=== PATIENT | male | born 1975 | race Hispanic/Latino ===

== ENCOUNTER 2017-12-24 18:07 | Inpatient (IN) | payer MEDICAID, OTHER ==
[2017-12-24 18:07] VITALS: BMI 27.5
[2017-12-24 19:30] LABS: BASO % 0.6 % (0.0-2.0); EOS # 0.2 K/uL (0.0-0.7); EOS % 3.1 % (0.0-4.0); LYMPH # 2.2 K/uL (1.0-4.3); LYMPH % 32.4 % (20.0-40.0); MEAN CELL VOLUME 88.7 fL (80.0-94.0); MEAN CORPUSCULAR HEMOGLOBIN 29.5 pg (27.0-31.0); MEAN CORPUSCULAR HGB CONC 33.2 g/dL (33.0-37.0); MEAN PLATELET VOLUME 7.3 fL (7.2-11.7); MONO # 0.6 K/uL (0.0-0.8); MONO % 8.4 % (0.0-10.0); NEUT # 3.7 K/uL (1.8-7.0); NEUT % 55.5 % (50.0-75.0); RBC 4.08 Mil/uL (4.40-5.90); RED CELL DISTRIBUTION WIDTH 13.4 % (11.5-14.5); WHITE BLOOD COUNT 6.7 K/uL (4.8-10.8)
--- NOTE | 2017-12-24 19:38 | C.PDOC ---
History Of Present Illness 42 y/o male presents to ED requesting detox from heroin. Patient states last use was this morning. Denies any physical complaints. Chief Complaint (Nursing): Substance Abuse History Per: Patient History/Exam Limitations: no limitations Onset/Duration Of Symptoms: Hrs Current Symptoms Are (Timing): Still Present Suicide/Self Injury Attempted (Context): None Modifying Factor(s): Narcotics (Heroin) Associated Symptoms: denies: Anger, Suicidal Thoughts, Suicidal Plan Involuntary Hold By: None Recent travel outside of the [place]: No Past Medical History Reviewed: Historical Data, Nursing Documentation, Vital Signs Vital Signs: Last Vital Signs Temp 98.1 F 12/24/17 18:11 Pulse 83 12/24/17 18:11 Resp 16 12/24/17 18:11 BP 124/61 12/24/17 18:11 Pulse Ox 98 12/24/17 19:41 - Medical History PMH: Hepatitis - [facility] Procedures CLOSURE SKIN & SUBCUTANEOUS NEC (09/25/01) DRUG DETOXIFICATION (09/17/14) TETANUS TOXOID ADMINIST (09/25/01) Family History: States: Unknown Family Hx - Social History Hx Tobacco Use: Yes Hx Alcohol Use: No Hx Substance Use: Yes (heroin daily.) - Immunization History Hx Tetanus Toxoid Vaccination: No Hx Influenza Vaccination: No Hx Pneumococcal Vaccination: No Review Of Systems Constitutional: Negative for: Fever, Chills Cardiovascular: Negative for: Chest Pain Respiratory: Negative for: Shortness of Breath Gastrointestinal: Negative for: Nausea, Vomiting, Abdominal Pain, Diarrhea Skin: Negative for: Rash Neurological: Negative for: Weakness, Numbness Physical Exam - Physical Exam Appears: Well, Non-toxic, No Acute Distress Skin: Normal Color, Warm, Dry Head: Atraumatic, Normacephalic Eye(s): bilateral: Normal Inspection Nose: Normal, No Discharge Oral Mucosa: Moist Neck: Supple Chest: Symmetrical, No Tenderness Cardiovascular: Rhythm Regular, No Murmur Respiratory: Normal Breath Sounds, No Decreased Breath Sounds, No Rales, No Rhonchi, No Wheezing Gastrointestinal/Abdominal: Soft, No Tenderness Extremity: Normal ROM Extremity: Bilateral: Atraumatic, Normal Color And Temperature, Normal ROM Neurological/Psych: Oriented x3 (Awake and alert ), Normal Speech Gait: Steady ED Course And Treatment - Laboratory Results Result Diagrams: 12/24/17 19:26 12/24/17 19:26 O2 Sat by Pulse Oximetry: 98 (RA) Pulse Ox Interpretation: Normal Medical Decision Making Medical Decision Making: Ordered blood work and urinalysis. Disposition Discussed With : Giovanni Betts Doctor Will See Patient In The: Hospital Counseled Patient/Family Regarding: Diagnosis - Disposition Disposition: HOSPITALIZED Disposition Time: 21:43 Condition: STABLE Forms: [facility] (Portuguese) - POA Present On Arrival: None - Clinical Impression Clinical Impression: Opioid abuse - Scribe Statement The provider has reviewed the documentation as recorded by the Scribdunia Méndez All medical record entries made by the Ronaibdunia were at my direction and personally dictated by me. I have reviewed the chart and agree that the record accurately reflects my personal performance of the history, physical exam, medical decision making, and the department course for this patient. I have also personally directed, reviewed, and agree with the discharge instructions and disposition.
[2017-12-24 19:46] LABS: ALB/GLOB RATIO 1.3 (1.0-2.1); ALBUMIN 4.5 g/dL (3.5-5.0); ALT/SGPT 28 U/L (21-72); AST/SGOT 36 U/L (17-59); BLOOD UREA NITROGEN 28 mg/dL (9-20); CALCIUM 9.2 mg/dl (8.6-10.4); GFR AFRICAN-AMERICAN > 60; GFR NON-AFRICAN AMERICAN > 60
[2017-12-24 20:19] LABS: SQUAMOUS EPITHIAL < 1 /hpf (0-5); URINE BILIRUBIN 1+ (NEGATIVE); URINE BLOOD NEGATIVE (NEGATIVE); URINE CLARITY Hazy (Clear); URINE GLUCOSE (UA) NORMAL (Normal); URINE LEUKOCYTE ESTERASE NEG Leu/uL (Negative); URINE PROTEIN 1+ mg/dL (NEGATIVE)
[2017-12-24 20:20] LABS: URINE COLOR YELLOW (YELLOW)
[2017-12-24 20:39] LABS: PHENCYCLIDINE, UR NEGATIVE (NEGATIVE)
[2017-12-24 20:40] LABS: BARBITURATES, UR POSITIVE (NEGATIVE); BENZODIAZEPINES, UR POSITIVE (NEGATIVE); OPIATES, UR POSITIVE (NEGATIVE)
[2017-12-24] MEDS ORDERED: Aluminum Hydroxide/Magnesium Hydroxide Susp (30 mL) PO PRN (22:25)
[2017-12-24 22:26] VITALS: RESP 18
--- NOTE | 2017-12-24 22:47 | PCM.BM ---
<Huma Jennings - Last Filed: 12/24/17 22:45> Treatment Plan Problems - Problems identified on initial assessmt potiential for opiate withdrawal Date Initiated: 12/24/17 Time Initiated: 22:46 Assessment reference: NA Status: Active Treatment assets and liabiliti Patient Assests: cooperative, ADL independent, physically healthy, cognitively intact Patient Liabilities: substance abuse, medical problems - Milieu Protocol Maintain good personal hygiene: daily Encourage regular showers, daily Remind patient to perform daily oral care, daily Assist patient to perform ADL's Maintain personal safety: every shift Educate patient to report safety concerns to staff, every shift Monitor environment for contraband/sharps Medication safety: Monitor for expected outcome, potential side effects: every shift, Assess barriers to learning: every shift, Assess readiness for medication education: every shift <Ino Yi - Last Filed: 12/25/17 18:41> - Diagnosis (1) Opioid use disorder, severe, dependence Status: Acute Interventions: 12/25/17 18:40 * Assess 7x/week regarding severity of withdrawal * Educate regarding risks, benefits, side effects and alternatives of medications * Use Motivational Interviewing for abstinence * Use CBT for relapse prevention * Medication management for withdrawal symptoms * Encourage medication assisted treatment (2) Cocaine use disorder, severe, dependence Status: Acute Interventions: 12/25/17 18:41 * Assess 7x/week regarding severity of withdrawal * Educate regarding risks, benefits, side effects and alternatives of medications * Use Motivational Interviewing for abstinence * Use CBT for relapse prevention * Medication management for withdrawal symptoms * Encourage medication assisted treatment
--- NOTE | 2017-12-25 17:59 | PCM.PSYCH ---
Initial Psychiatric Evaluation - Initial Psychiatric Evaluation Type of Admission: Voluntary Legal Status: Capacity Chief Complaint (in patient's own words): I want to get treatment for heroin use History of Present Illness and Precipitating Events: Patient is a 42 years old, single, unemployed, male with no psychiatric history and who was admitted for the treatment of withdrawing from heroin and cocaine. Heroin: Started using heroin at 18 years of age, increased gradually, currently he was using 12-15 bags daily, IV, last used yesterday. Denied any previous detox or rehabilitation. According to patient he has multiple histories of OD, last set 2 weeks ago, required naltrexone. Patient was also positive for cocaine and barbiturates. He reported using cocaine since he was 16 years of age. He was guarded about further details about cocaine and barbiturates. He smokes one pack of cigarettes daily. Refused to get nicotine patch. Patient was arrested before and was in [facility] for about 12 years for armed robbery in 1996. Later he was again in [facility] in 2005. He was born in [place] has ninth grade of education, not working for last 2- 3 years. Never and has one 17 years old son who lives with his mother. Patient lives with his mother. His height is 6 foot 4 inches and weight is 196 pounds. Patient wants to go to short-term program for follow-up care after discharge from the hospital. Current Medications: Active Medications Generic Name Dose Route Start Last Admin Trade Name Freq PRN Reason Stop Dose Admin Al Hydrox/Mg Hydrox/Simethicone 30 ml 12/24/17 22:25 Maalox 30 Ml PO TID PRN Indigestion / Heartburn Clonidine HCl 0.1 mg 12/24/17 22:25 12/25/17 14:34 Catapres PO 0.1 mg Q8 PRN Administration COWS Score More or Equal to 5 Dicyclomine HCl 20 mg 12/25/17 11:16 Bentyl PO Q6 PRN Abdominal Cramps Hydroxyzine HCl 50 mg 12/24/17 22:31 12/24/17 23:10 Atarax PO 50 mg Q6H PRN Administration Anxiety Ibuprofen 600 mg 12/24/17 22:31 12/24/17 23:10 Motrin Tab PO 600 mg Q6H PRN Administration Pain, moderate (4-7) Loperamide HCl 2 mg 12/24/17 22:25 Imodium PO Q8 PRN Diarrhea Methadone HCl 15 mg 12/26/17 10:00 Methadone PO 12/29/17 09:59 Q24H YUSEF Taper Nitrofurantoin Macrocrystals 100 mg 12/25/17 10:00 12/25/17 10:52 Macrobid PO 100 mg Q12H YUSEF Administration Protocol Ondansetron HCl 4 mg 12/24/17 22:25 Zofran Tab PO Q8 PRN Nausea/Vomiting Trazodone HCl 100 mg 12/24/17 22:31 12/24/17 23:10 Desyrel PO 100 mg HS PRN Administration Insomnia Past Psychiatric History - Past Psychiatric History Previous Treatment History: None History of Abuse: None reported History of ETOH/Drug Use: See HPI History of Family Illness: Reported his father has history of heroine and alcohol use. Mother has history of addiction to opiate pain medication. Pertinent Medical Hx (Current Medical&Sleep Prob, Allergies): Allergies Allergy/AdvReac Type Severity Reaction Status Date / Time No Known Allergies Allergy Verified 12/24/17 18:13 No Known Home Med 12/24/17 Hepatitis C Review of Systems - Psychiatric Psychiatric: As Per HPI Mental Status Examination - Personal Presentation Personal Presentation: Looks stated age - Affect Affect: Depressed - Motor Activity Motor Activity: Calm - Reliability in Providing Information Reliability in Providing Information: Fair - Speech Speech: Organized - Mood Mood: Depressed - Formal Thought Process Formal Thought Process: No Impairment - Hallucinations/Delusions Hallucinations: Other (None reported) Delusions: Other - Obsessions/Compulsions Obsessions: None Compulsions: None - Cognitive Functions Orientation: Person, Place, Situation, Time Sensorium: Alert Attention/Concentration: Attentive Abstract Thinking: [place] Estimate of Intelligence: Average Judgement: Intact, as evidence by: Insight regarding need for hospitalization Memory: Recent intact, as evidence by: Ability to recall events of the day, Remote intact, as evidenced by: Ability to recall historical events - Risk Risk: Withdrawal, Diminished functioning - Strength & Assets Inventory Strength & Assets Inventory: Family support, Cooperative - Limitations Limitations: Other DSM 5 DX - DSM 5 DSM 5 Diagnosis: Opiate use disorder severe Cocaine use disorder severe - Recommended/Plan of Treatment Treatment Recommendations and Plan of Treatment: Patient education. Supportive therapy. CBT for relapse prevention. RI for abstinence. We'll start methadone taper for opiate withdrawal symptoms. Other when necessary medications. Projected ELOS: 4-5 days - Smoking Cessation Smoking Cessation Initiated: No Reason for not providing: Patient refused
[2017-12-25 18:31] VITALS: BP 118/74; PULSE 75; TEMP 98.2; O2SAT 98
== END 2017-12-26 06:32 | disposition left against medical advice (07) | DRG 743 ==
LOC: C.ER 18:07 → C.7D 21:43
PROVIDERS: ADMIT Psychiatry & Neurology Psychiatry; ATTEND Psychiatry & Neurology Psychiatry
PROC: HZ2ZZZZ Detoxification Services for Substance Abuse Treatment (ICD-10-PCS; principal; 2017-12-24)
PROC: HZ56ZZZ Individual Psychotherapy for Substance Abuse Treatment, Psychoeducation (ICD-10-PCS; 2017-12-24)
PROC: HZ59ZZZ Individual Psychotherapy for Substance Abuse Treatment, Supportive (ICD-10-PCS; 2017-12-24)
DX: F11.20 Opioid dependence, uncomplicated (principal); F14.20 Cocaine dependence, uncomplicated; F17.210 Nicotine dependence, cigarettes, uncomplicated

== ENCOUNTER 2018-08-03 12:44 | Inpatient (IN) | payer MEDICAID ==
[2018-08-03 12:44] VITALS: BMI 27.5
[2018-08-03 14:34] LABS: BASO % 0.6 % (0.0-2.0); EOS # 0.2 K/uL (0.0-0.7); EOS % 3.2 % (0.0-4.0); HEMOGLOBIN 12.7 g/dL (12.0-18.0); MEAN CORPUSCULAR HEMOGLOBIN 30.8 pg (27.0-31.0); MEAN CORPUSCULAR HGB CONC 33.7 g/dL (33.0-37.0); MEAN PLATELET VOLUME 7.5 fL (7.2-11.7); MONO # 0.5 K/uL (0.0-0.8); MONO % 9.7 % (0.0-10.0); NEUT # 3.4 K/uL (1.8-7.0); NEUT % 66.5 % (50.0-75.0); NRBC % 0.3 % (0.0-2.0); RBC 4.12 Mil/uL (4.40-5.90); RED CELL DISTRIBUTION WIDTH 13.4 % (11.5-14.5); WHITE BLOOD COUNT 5.1 K/uL (4.8-10.8)
[2018-08-03 14:35] LABS: MEAN CELL VOLUME 91.2 fL (80.0-94.0)
[2018-08-03 14:39] LABS: SQUAMOUS EPITHIAL < 1 /hpf (0-5); URINE BILIRUBIN NEGATIVE (NEGATIVE); URINE BLOOD NEGATIVE (NEGATIVE); URINE CLARITY Clear (Clear); URINE COLOR Yellow (YELLOW); URINE GLUCOSE (UA) NORMAL (Normal); URINE LEUKOCYTE ESTERASE NEG Leu/uL (Negative); URINE PROTEIN NEGATIVE (NEGATIVE); URINE UROBILINOGEN NORMAL mg/dL (0.2-1.0)
[2018-08-03 14:49] LABS: ALB/GLOB RATIO 1.4 (1.0-2.1); ALBUMIN 4.2 g/dL (3.5-5.0); ALT/SGPT 38 U/L (21-72); AST/SGOT 36 U/L (17-59); BLOOD UREA NITROGEN 19 mg/dL (9-20); GFR NON-AFRICAN AMERICAN > 60
[2018-08-03 14:57] LABS: BARBITURATES, UR NEGATIVE (NEGATIVE); PHENCYCLIDINE, UR NEGATIVE (NEGATIVE)
[2018-08-03 15:04] LABS: BENZODIAZEPINES, UR POSITIVE (NEGATIVE); OPIATES, UR POSITIVE (NEGATIVE)
--- NOTE | 2018-08-03 15:56 | C.PDOC ---
History Of Present Illness 43 year old male presents to the emergency department requesting detox for heroin. Patient states that he uses heroin intravenously, more than 10 bags per day. Patient also reports occasional Xanax use. Patient reports feeling depres sed due to the recent of his mother. He denies suicidal/homicidal ideation, hallucinations, and has no physical complaints at this time. Time Seen by Provider: 08/03/18 13:07 Chief Complaint (Nursing): Substance Abuse History Per: Patient History/Exam Limitations: no limitations Onset/Duration Of Symptoms: Days Current Symptoms Are (Timing): Still Present Suicide/Self Injury Attempted (Context): None Modifying Factor(s): Other (heroin) Associated Symptoms: Depression. denies: Suicidal Thoughts, Suicidal Plan, Other (homicidal ideation, hallucinations. ) Past Medical History Reviewed: Historical Data, Nursing Documentation, Vital Signs Vital Signs: Last Vital Signs Temp 98.2 F 08/03/18 15:07 Pulse 74 08/03/18 15:07 Resp 18 08/03/18 15:07 BP 98/61 L 08/03/18 15:07 Pulse Ox 100 08/03/18 15:07 - Medical History PMH: Hepatitis Denies: Diabetes, HTN, Chronic Kidney Disease, Seizures, Sexually Transmitted Disease Surgical History: No Surg Hx - [facility] Procedures CLOSURE SKIN & SUBCUTANEOUS NEC (09/25/01) DETOXIFICATION SERVICES FOR SUBSTANCE ABUSE TREATMENT (12/24/17) DRUG DETOXIFICATION (09/17/14) INDIV PSYCHOTHERAPY FOR SUBSTANCE ABUSE TREATMENT, SUPPORT (12/24/17) INDIV PSYCHOTHERAPY FOR SUBSTANCE ABUSE, PSYCHOEDUCATION (12/24/17) TETANUS TOXOID ADMINIST (09/25/01) Family History: States: Unknown Family Hx - Social History Hx Tobacco Use: Yes Hx Alcohol Use: No Hx Substance Use: Yes (heroin daily.) - Immunization History Hx Tetanus Toxoid Vaccination: No Hx Influenza Vaccination: No Hx Pneumococcal Vaccination: No Review Of Systems Except As Marked, All Systems Reviewed And Found Negative. Constitutional: Negative for: Fever, Chills Gastrointestinal: Negative for: Nausea, Vomiting, Diarrhea Psych: Positive for: Depression. Negative for: Suicidal ideation, Other (hallucinations) Physical Exam - Physical Exam Appears: Non-toxic, No Acute Distress Skin: Normal Color, Warm, Dry Head: Atraumatic, Normacephalic Eye(s): bilateral: Normal Inspection, PERRL, EOMI Oral Mucosa: Moist Neck: Normal, Supple Chest: Symmetrical, No Tenderness Cardiovascular: Rhythm Regular, No Murmur Respiratory: Normal Breath Sounds, No Rales, No Rhonchi, No Wheezing Gastrointestinal/Abdominal: Soft, No Tenderness Extremity: Other (track limon on arms bilaterally, no sign of infection) Neurological/Psych: Oriented x3, Normal Speech, Normal Cognition ED Course And Treatment - Laboratory Results Result Diagrams: 08/03/18 14:29 08/03/18 14:29 Lab Results: Total Bilirubin 0.4 mg/dL (0.2-1.3) 08/03/18 14:29 AST 36 U/L (17-59) 08/03/18 14:29 ALT 38 U/L (21-72) 08/03/18 14:29 Alkaline Phosphatase 60 U/L (38-126) 08/03/18 14:29 Total Protein 7.1 g/dL (6.3-8.3) 08/03/18 14:29 Albumin 4.2 g/dL (3.5-5.0) 08/03/18 14:29 Globulin 3.0 gm/dL (2.2-3.9) 08/03/18 14:29 Albumin/Globulin Ratio 1.4 (1.0-2.1) 08/03/18 14:29 Urine Color Yellow (YELLOW) 08/03/18 14:29 Urine Clarity Clear (Clear) 08/03/18 14:29 Urine pH 5.0 (5.0-8.0) 08/03/18 14:29 Ur Specific [place] 1.025 (1.003-1.030) 08/03/18 14:29 Urine Protein Negative mg/dL (NEGATIVE) 08/03/18 14:29 Urine Glucose (UA) Normal mg/dL (Normal) 08/03/18 14:29 Urine Ketones Negative mg/dL (NEGATIVE) 08/03/18 14:29 Urine Blood Negative (NEGATIVE) 08/03/18 14:29 Urine Nitrate Negative (NEGATIVE) 08/03/18 14:29 Urine Bilirubin Negative (NEGATIVE) 08/03/18 14:29 Urine Urobilinogen Normal mg/dL (0.2-1.0) 08/03/18 14:29 Ur Leukocyte Esterase Neg Marti/uL (Negative) 08/03/18 14:29 Urine WBC (Auto) < 1 /hpf (0-5) 08/03/18 14:29 Ur Squamous Epith Cells < 1 /hpf (0-5) 08/03/18 14:29 O2 Sat by Pulse Oximetry: 100 (RA) Pulse Ox Interpretation: Normal Medical Decision Making Medical Decision Making: Plan: Chemistry Bloodwork Urinalysis Disposition - Disposition Disposition: HOSPITALIZED Disposition Time: 15:00 Condition: STABLE - Clinical Impression Clinical Impression: Drug dependence - Scribe Statement The provider has reviewed the documentation as recorded by the Scribe (Joesph Siddiqi) Provider Attestation: All medical record entries made by the Scribe were at my direction and personally dictated by me. I have reviewed the chart and agree that the record accurately reflects my personal performance of the history, physical exam, medical decision making, and the department course for this patient. I have also personally directed, reviewed, and agree with the discharge instructions and disposition.
[2018-08-03] MEDS ORDERED: Aluminum Hydroxide/Magnesium Hydroxide Susp (30 mL) PO PRN (17:02)
--- NOTE | 2018-08-03 17:07 | PCM.BM ---
<Vanda Kirk - Last Filed: 08/03/18 17:06> Treatment Plan Problems - Problems identified on initial assessmt Denial Date Initiated: 08/03/18 Time Initiated: 17:06 Assessment reference: NA Status: Active Defensive Coping Date Initiated: 08/03/18 Time Initiated: 17:06 Assessment reference: NA Status: Active Knowledge Deficit : alcohol use Date Initiated: 08/03/18 Time Initiated: 17:07 Assessment reference: NA Treatment assets and liabiliti Patient Assests: cooperative, ADL independent, physically healthy, negotiates basic needs, cognitively intact Patient Liabilities: substance abuse - Milieu Protocol Maintain good personal hygiene: daily Encourage regular showers, daily Remind patient to perform daily oral care, daily Assist patient to perform ADL's Conduct patient checks and document Observation sheet: Q15 minutes Maintain personal safety: every shift Educate patient to report safety concerns to staff, every shift Monitor environment for contraband/sharps Medication safety: Monitor for expected outcome, potential side effects: every shift, Assess barriers to learning: every shift, Assess readiness for medication education: every shift <Giovanni Betts - Last Filed: 08/06/18 12:38> - Diagnosis (1) Opioid use disorder, severe, dependence Status: Acute Interventions: 08/04/18 12:38 * Assess 7x/week regarding severity of withdrawal * Educate regarding risks, benefits, side effects and alternatives of medications * Use Motivational Interviewing for abstinence * Use CBT for relapse prevention * Medication management for withdrawal symptoms * Encourage medication assisted treatment * <Faith Sales - Last Filed: 08/06/18 12:56> Family Contact Family involvement: Family/SO is involved Family contact name: ex- Family contacted how many times per week?: 2 - Goals for Treatment Patient goals for treatment: Complete detox and [facility] for long-term inpatient treatment program. Discharge/Continuing Care - Education Needs Education Needs: Patient Medication, Patient Diagnosis/Disease Process, Patient Coping Skills, Patient Anger Management skills, Patient Placement options, Patient Community resources, Significant Other Diagnosis/Disease Process, Significant Other Community resources - Discharge Discharge Criteria: No longer exhibiting s/s of withdrawal, Reduction of target symptoms Discharge to:: Substance Abuse Rehab - Treatment Team Participation Patient/Family/SO Statement: 08/06/18 12:56 "I need to go somewhere long-term from here..." Discussed with Family/SO: No Was Patient/Family/SO present at Treatment Team Meeting: Yes
--- NOTE | 2018-08-04 10:53 | PCM.PSYCH ---
Initial Psychiatric Evaluation - Initial Psychiatric Evaluation Type of Admission: Voluntary Legal Status: Capacity Chief Complaint (in patient's own words): "I am still withdrawing" History of Present Illness and Precipitating Events: Patient is a 43 years old, single, unemployed, male who was admitted for the treatment of withdrawing from heroin. Patient claims that he was recently in [facility] but left after 2 da ys and then went to [facility] and left there are 2 days because he was still withdrawing. He used after [facility] and came here detox. Heroin: Started using heroin at 18 years of age, increased gradually, currently he was using 10 bags daily, IV, last used yesterday. According to patient he has multiple histories of OD. Patient reported using cocaine since he was 16 years of age. He also uses Xanax 3 or 4 tablets a day either 1 or 2 mg tablets. He smokes marijuana daily and one pack of cigarettes daily. Refused to get nicotine patch. He denied other drug or alcohol use. Patient was arrested before and was in [facility] for about 12 years for armed robbery in 1996. Later, he was again in [facility] in 2005. He was born in [place] has ninth grade of education, not working for last 2-3 years. Never and has one 17 year-old son who lives with his mother. Patient lives with his mother. Patient reports history of depression and anxiety and anger management problems. Of note, he signed out AMA last time he was here in 2018. Current Medications: Active Medications Generic Name Dose Route Start Last Admin Trade Name Freq PRN Reason Stop Dose Admin Al Hydrox/Mg Hydrox/Simethicone 30 ml 08/03/18 17:02 Maalox 30 Ml PO TID PRN Indigestion / Heartburn Clonidine HCl 0.1 mg 08/03/18 17:02 Catapres PO Q4 PRN COWS Score More or Equal to 5 Gabapentin 300 mg 08/03/18 18:00 08/04/18 10:00 Neurontin PO 300 mg TID YUSEF Administration Hydroxyzine HCl 50 mg 08/03/18 17:00 08/03/18 22:26 Atarax PO 50 mg Q6H PRN Administration Anxiety Ibuprofen 600 mg 08/03/18 16:52 Motrin Tab PO Q6H PRN Pain, moderate (4-7) Loperamide HCl 2 mg 08/03/18 17:02 Imodium PO Q8 PRN Diarrhea Mirtazapine 15 mg 08/03/18 22:00 08/03/18 22:26 Remeron PO 15 mg HS YUSEF Administration Ondansetron HCl 4 mg 08/03/18 17:02 Zofran Tab PO Q8 PRN Nausea/Vomiting Trazodone HCl 100 mg 08/03/18 22:00 08/03/18 22:27 Desyrel PO 100 mg HS PRN Administration Insomnia Past Psychiatric History - Past Psychiatric History Pertinent Medical Hx (Current Medical&Sleep Prob, Allergies): Allergies Allergy/AdvReac Type Severity Reaction Status Date / Time No Known Allergies Allergy Verified 08/03/18 13:07 No Known Home Med 12/24/17 Review of Systems - Neurological Neurological: UNREMARKABLE - Psychiatric Psychiatric: Abnormal Sleep Pattern, Anhedonia, Anxiety, Behavioral Changes, Depression (Mild), Difficulty Concentrating, Irritability. absent: Hallucinations, Homicidal Ideation, Suicidal Ideation Mental Status Examination - Personal Presentation Personal Presentation: Looks older than stated age - Affect Affect: Constricted - Motor Activity Motor Activity: Other (Slightly restless) - Reliability in Providing Information Reliability in Providing Information: Fair - Speech Speech: Organized - Mood Mood: Depressed, Anxious - Formal Thought Process Formal Thought Process: No Impairment - Cognitive Functions Orientation: Person, Place, Situation, Time Sensorium: Alert Attention/Concentration: Easily distracted Estimate of Intelligence: Average Judgement: Intact, as evidence by: Insight regarding need for hospitalization Memory: Recent intact, as evidence by: Ability to recall events of the day, Remote intact, as evidenced by: Abilit to recall sig. life events - Risk Risk: Withdrawal, Diminished functioning - Strength & Assets Inventory Strength & Assets Inventory: Cooperative - Limitations Limitations: Living alone DSM 5 DX - DSM 5 DSM 5 Diagnosis: Opioid withdrawal Opioid use disorder, severe Sedative, hypnotic or anxiolytic use disorder, severe Cocaine use disorder, severe Personality disorder, unspecified Depressive disorder, unspecified Cannabis use disorder severe - Recommended/Plan of Treatment Treatment Recommendations and Plan of Treatment: Taper with methadone Patient has not been using Xanax as much lately and plus he was in another detox so we will not start benzo detox unless he develops withdrawal symptoms Gabapentin for augmentation if needed As needed medications All risks, benefits and alternatives of the meds discussed, and the pt agreed and understood. Attend groups and activities Supportive therapy and psychoeducation ND for abstinence CBT for relapse prevention Encourage MAT Refer to rehab or IOP, and self-help groups Teach healthy lifestyle methods, i.e. diet, exercise, meditation Smoking cessation with ND Nicotine patch if needed 34 min Projected ELOS: 4 days Prognosis: Good with treatment - Smoking Cessation Smoking Cessation Initiated: Yes
--- NOTE | 2018-08-06 12:40 | PCM.PYCHPN ---
Psychiatric Progress Note - Psychiatric Progress Note Patient seen today, length of contact: 18 min Patient Chief Complaint: "I am not well" Problems Identified/Issues Discussed: The pt is seen, chart reviewed, case discussed with staff. Support and psychoeducation given, CBT and LA used briefly No new symptoms reported, improving slowly and needs more time No SEs from medications, risks discussed. After care discussed Medication Change: Yes (detox changes daily) Medical Record Reviewed: Yes Mental Status Examination - Cognitive Function Orientation: Person, Place, Situation, Time Memory: Intact Attention: WNL Concentration: Poor Association: WNL Fund of Knowledge: WNL - Mood Mood: Depressed, Anxious - Affect Affect: Constricted - Speech Speech: Appropriate - Formal Thought Process Formal Thought Process: No Impairment - Suicidal Ideation Suicidal Ideation: No - Homicidal Ideation Homicidal Ideation: No Goal/Treatment Plan - Goal/Treatment Plan Need for Continued Stay: Discharge may exacerbated symptoms, Severe functional impairment Progress Toward Problem(s) and Goals/Treatment Plan: Taper with methadone Patient has not been using Xanax as much lately and plus he was in another detox so we will not start benzo detox unless he develops withdrawal symptoms Gabapentin for augmentation if needed As needed medications All risks, benefits and alternatives of the meds discussed, and the pt agreed and understood. Attend groups and activities Supportive therapy and psychoeducation LA for abstinence CBT for relapse prevention Encourage MAT Refer to rehab or IOP, and self-help groups Teach healthy lifestyle methods, i.e. diet, exercise, meditation Smoking cessation with LA Nicotine patch if needed
--- NOTE | 2018-08-06 12:43 | PCM.PYCHPN ---
Psychiatric Progress Note - Psychiatric Progress Note Patient seen today, length of contact: 18 min Patient Chief Complaint: "I couldn't sleep" Problems Identified/Issues Discussed: The pt is seen, chart reviewed, case discussed with staff. The pt is compliant with medications and reports no side-effects. Symptoms are improving but needs more time to stabilize. Sleep is an issue. He also threw up again. Pt attends groups and activities. Support given, psycho-education provided. After care discussed. Medication Change: Yes (detox changes daily) Medical Record Reviewed: Yes Mental Status Examination - Cognitive Function Orientation: Person, Place, Situation, Time Memory: Intact Attention: WNL Concentration: Poor Association: WNL Fund of Knowledge: WNL - Mood Mood: Depressed, Anxious - Affect Affect: Constricted - Speech Speech: Appropriate - Formal Thought Process Formal Thought Process: No Impairment - Suicidal Ideation Suicidal Ideation: No - Homicidal Ideation Homicidal Ideation: No Goal/Treatment Plan - Goal/Treatment Plan Need for Continued Stay: Discharge may exacerbated symptoms, Severe functional impairment Progress Toward Problem(s) and Goals/Treatment Plan: Taper with methadone Patient has not been using Xanax as much lately and plus he was in another detox so we will not start benzo detox unless he develops withdrawal symptoms Gabapentin for augmentation if needed As needed medications All risks, benefits and alternatives of the meds discussed, and the pt agreed and understood. Attend groups and activities Supportive therapy and psychoeducation [place] for abstinence CBT for relapse prevention Encourage MAT Refer to rehab or IOP, and self-help groups Teach healthy lifestyle methods, i.e. diet, exercise, meditation Smoking cessation with [place] Nicotine patch if needed Estimated Date of D/C: 08/07/18 - Smoking Cessation Smoking Cessation Initiated: Yes
[2018-08-07 07:00] VITALS: RESP 18
--- NOTE | 2018-08-07 08:51 | PCM.PYCHDC ---
Mental Status Examination - Mental Status Examination Orientation: Person Discharge Summary - Discharge Note Consultations:: List each consultation separately and include: 1. Reason for request. 2. Findings. 3. Follow-up Summary of Hospital Course include:: 1. Description of specific treatment plan utilized for patients during their course of treatmen. 2. Summarize the time- course for resolution of acute symptoms and/or regressed behaviors. 3. Describe issues identified and worked on during hospitalization. 4. Describe medication utilized. 5. Describe medical problems identified and treated. 6. Reassessment of suicide risk Summary of Hospital Course: Patient is a 43 years old, single, unemployed, male who was admitted for the treatment of withdrawing from heroin. Patient claims that he was recently in [facility] but left after 2 days and then went to [facility] and left there are 2 days because he was still withdrawing. He used after [facility] and came here detox. Heroin: Started using heroin at 18 years of age, increased gradually, currently he was using 10 bags daily, IV, last used yesterday. According to patient he has multiple histories of OD. Patient reported using cocaine since he was 16 years of age. He also uses Xanax 3 or 4 tablets a day either 1 or 2 mg tablets. He smokes marijuana daily and one pack of cigarettes daily. Refused to get nicotine patch. He denied other drug or alcohol use. Patient was arrested before and [facility] about 12 years for armed robbery in 1996. Later, he was [facility] in [facility] 2005. He was born in [place] has ninth grade of education, not working for last 2-3 years. Never and has one 17 year-old son who lives with his mother. Patient lives with his mother. Patient reports history of depression and anxiety and anger management problems. Of note, he signed out AMA last time he was here in 2018. He went to [facility] in [place] - Diagnosis (1) Opioid use disorder, severe, dependence Current Visit: No Status: Acute - Final Diagnosis (DSM 5) Condition upon Discharge: STABLE Disposition: HOME/ ROUTINE Follow-up Treatment Plan: Taper with methadone Patient has not been using Xanax as much lately and plus he was in another detox so we will not start benzo detox unless he develops withdrawal symptoms Gabapentin for augmentation if needed As needed medications All risks, benefits and alternatives of the meds discussed, and the pt agreed and understood. Attend groups and activities Supportive therapy and psychoeducation [place] for abstinence CBT for relapse prevention Encourage MAT Refer to rehab or IOP, and self-help groups Teach healthy lifestyle methods, i.e. diet, exercise, meditation Smoking cessation with [place] Nicotine patch if needed Prescriptions/Medication Reconciliation: Gabapentin [Neurontin] 300 mg PO TID #90 cap Mirtazapine [Remeron] 30 mg PO HS #30 tab traZODone [Desyrel] 100 mg PO HS PRN #30 tab PRN Reason: Insomnia
[2018-08-07 10:09] VITALS: BP 108/65; PULSE 83; TEMP 97.6; O2SAT 99
== END 2018-08-07 10:45 | disposition home or self-care (01) | DRG 745 ==
LOC: C.ER 12:44 → C.7D 15:54
PROVIDERS: ADMIT Psychiatry & Neurology Psychiatry; ATTEND Psychiatry & Neurology Psychiatry
PROC: HZ2ZZZZ Detoxification Services for Substance Abuse Treatment (ICD-10-PCS; principal; 2018-08-03)
PROC: HZ81ZZZ Medication Management for Substance Abuse Treatment, Methadone Maintenance (ICD-10-PCS; 2018-08-03)
PROC: HZ80ZZZ Medication Management for Substance Abuse Treatment, Nicotine Replacement (ICD-10-PCS; 2018-08-03)
PROC: HZ46ZZZ Group Counseling for Substance Abuse Treatment, Psychoeducation (ICD-10-PCS; 2018-08-03)
PROC: HZ59ZZZ Individual Psychotherapy for Substance Abuse Treatment, Supportive (ICD-10-PCS; 2018-08-03)
DX: F11.23 Opioid dependence with withdrawal (principal); F14.20 Cocaine dependence, uncomplicated; F12.20 Cannabis dependence, uncomplicated; F13.10 Sedative, hypnotic or anxiolytic abuse, uncomplicated; F32.9 Major depressive disorder, single episode, unspecified; F60.9 Personality disorder, unspecified; F17.210 Nicotine dependence, cigarettes, uncomplicated

== ENCOUNTER 2018-09-24 14:14 | Inpatient (IN) | payer MEDICAID ==
[2018-09-24 14:39] VITALS: BMI 25.9
--- NOTE | 2018-09-24 15:01 | C.PDOC ---
History Of Present Illness 43 y/o male presents to the ED requesting detox from alcohol and heroin. Patient admits he last used heroin around 11:30pm last night. Denies having any active complaints. Denies any SI or HI. Time Seen by Provider: 09/24/18 14:34 Chief Complaint (Nursing): Substance Abuse History Per: Patient History/Exam Limitations: no limitations Onset/Duration Of Symptoms: Hrs Current Symptoms Are (Timing): Still Present Modifying Factor(s): Alcohol, Other (Heroin) Associated Symptoms: denies: Suicidal Thoughts Past Medical History Reviewed: Historical Data, Nursing Documentation, Vital Signs Vital Signs: Last Vital Signs Temp 98.6 F 09/24/18 14:40 Pulse 81 09/24/18 14:40 Resp 18 09/24/18 14:40 BP 121/69 09/24/18 14:40 Pulse Ox 95 09/24/18 14:40 - Medical History PMH: Hepatitis Denies: Diabetes, HTN, Chronic Kidney Disease, Seizures, Sexually Transmitted Disease - [facility] Procedures CLOSURE SKIN & SUBCUTANEOUS NEC (09/25/01) DETOXIFICATION SERVICES FOR SUBSTANCE ABUSE TREATMENT (08/03/18) DRUG DETOXIFICATION (09/17/14) GROUP SENIOR COST ESTIMATOR FOR SUBSTANCE ABUSE TREATMENT, PSYCHOEDUCATION (08/03/18) INDIV PSYCHOTHERAPY FOR SUBSTANCE ABUSE TREATMENT, SUPPORT (08/03/18) INDIV PSYCHOTHERAPY FOR SUBSTANCE ABUSE, PSYCHOEDUCATION (12/24/17) MEDS MGMT FOR SUBSTANCE ABUSE TREATMENT, METHADONE MAINT (08/03/18) MEDS MGMT FOR SUBSTANCE ABUSE TREATMENT, NICOTINE REPLACE (08/03/18) TETANUS TOXOID ADMINIST (09/25/01) Family History: States: Unknown Family Hx - Social History Hx Tobacco Use: Yes Hx Alcohol Use: Yes Hx Substance Use: Yes - Immunization History Hx Tetanus Toxoid Vaccination: No Hx Influenza Vaccination: No Hx Pneumococcal Vaccination: No Review Of Systems Except As Marked, All Systems Reviewed And Found Negative. Constitutional: Negative for: Fever, Chills Cardiovascular: Negative for: Chest Pain Respiratory: Negative for: Shortness of Breath Gastrointestinal: Negative for: Vomiting, Abdominal Pain Neurological: Negative for: Weakness, Dizziness Psych: Positive for: Other (Alcohol Abuse). Negative for: Suicidal ideation Physical Exam - Physical Exam Appears: Non-toxic, No Acute Distress Skin: Normal Color, Warm, No Rash Head: Normacephalic Eye(s): bilateral: PERRL Oral Mucosa: Moist Neck: Trachea Midline, Supple Chest: Symmetrical Cardiovascular: Rhythm Regular, No Murmur Respiratory: Normal Breath Sounds, No Accessory Muscle Use, No Rhonchi, No Wheezing Gastrointestinal/Abdominal: Soft, No Tenderness, No Distention Extremity: Normal ROM, No Pedal Edema, No Deformity Pulses: Left Dorsalis Pedis: Normal, Right Dorsalis Pedis: Normal Neurological/Psych: Oriented x3, Normal Speech ED Course And Treatment - Laboratory Results Result Diagrams: 09/24/18 15:39 09/24/18 15:39 Lab Interpretation: No Acute Changes O2 Sat by Pulse Oximetry: 95 Pulse Ox Interpretation: Normal Progress Note: Labs ordered for medical clearance. Pending PES evaluation. AT 16:10, pt is medically cleared for PES evaluation. Pt remained stable during the ED evaluation. 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 - Scribe Statement The provider has reviewed the documentation as recorded by the Scribdunia Gurrola All medical record entries made by the Scribe were at my direction and personally dictated by me. I have reviewed the chart and agree that the record accurately reflects my personal performance of the history, physical exam, medical decision making, and the department course for this patient. I have also personally directed, reviewed, and agree with the discharge instructions and dis position.
[2018-09-24 15:45] LABS: BASO % 0.7 % (0.0-2.0); EOS # 0.1 K/uL (0.0-0.7); EOS % 3.1 % (0.0-4.0); HEMOGLOBIN 12.3 g/dL (12.0-18.0); LYMPH # 1.5 K/uL (1.0-4.3); LYMPH % 32.1 % (20.0-40.0); MEAN CORPUSCULAR HEMOGLOBIN 31.9 pg (27.0-31.0); MEAN CORPUSCULAR HGB CONC 34.7 g/dL (33.0-37.0); MONO # 0.4 K/uL (0.0-0.8); MONO % 8.4 % (0.0-10.0); NEUT # 2.6 K/uL (1.8-7.0); NEUT % 55.7 % (50.0-75.0); NRBC % 0.1 % (0.0-2.0); RBC 3.85 Mil/uL (4.40-5.90); RED CELL DISTRIBUTION WIDTH 13.8 % (11.5-14.5); WHITE BLOOD COUNT 4.6 K/uL (4.8-10.8)
[2018-09-24 15:54] LABS: URINE BILIRUBIN NEGATIVE (NEGATIVE); URINE BLOOD NEGATIVE (NEGATIVE); URINE CLARITY Hazy (Clear); URINE COLOR Yellow (YELLOW); URINE GLUCOSE (UA) NORMAL (Normal); URINE LEUKOCYTE ESTERASE NEG Leu/uL (Negative); URINE PROTEIN NEGATIVE (NEGATIVE)
[2018-09-24 16:00] LABS: ALB/GLOB RATIO 1.7 (1.0-2.1); ALBUMIN 4.3 g/dL (3.5-5.0); ALT/SGPT 24 U/L (21-72); AST/SGOT 46 U/L (17-59); BLOOD UREA NITROGEN 18 mg/dL (9-20); CALCIUM 8.7 mg/dl (8.6-10.4); GFR NON-AFRICAN AMERICAN > 60
[2018-09-24 16:28] LABS: BARBITURATES, UR NEGATIVE (NEGATIVE); BENZODIAZEPINES, UR NEGATIVE (NEGATIVE); PHENCYCLIDINE, UR NEGATIVE (NEGATIVE)
[2018-09-24 16:32] LABS: OPIATES, UR POSITIVE (NEGATIVE)
--- NOTE | 2018-09-24 18:27 | PCM.BM ---
<Vanda Kirk - Last Filed: 09/24/18 18:26> Treatment Plan Problems - Problems identified on initial assessmt Defensive Coping Date Initiated: 09/24/18 Time Initiated: 18:26 Assessment reference: NA Status: Active Chronic Low Self Esteem Date Initiated: 09/24/18 Time Initiated: 18:27 Assessment reference: NA Status: Active Low motivation to change Date Initiated: 09/24/18 Time Initiated: 18:27 Assessment reference: NA Status: Active Treatment assets and liabiliti Patient Assests: cooperative, ADL independent, physically healthy, negotiates basic needs, cognitively intact Patient Liabilities: substance abuse - Milieu Protocol Maintain good personal hygiene: daily Encourage regular showers, daily Remind patient to perform daily oral care, daily Assist patient to perform ADL's Conduct patient checks and document Observation sheet: Q15 minutes Maintain personal safety: every shift Educate patient to report safety concerns to staff, every shift Monitor environment for contraband/sharps Medication safety: Monitor for expected outcome, potential side effects: every shift, Assess barriers to learning: every shift, Assess readiness for medication education: every shift <[employer] - Last Filed: 09/25/18 11:20> Family Contact Family involvement: Famliy/SO not involved - Goals for Treatment Patient goals for treatment: COMPLETE DETOX AND APPLY FOR LONG-TERM REHAB. Discharge/Continuing Care - Education Needs Education Needs: Patient Medication, Patient Diagnosis/Disease Process, Patient Coping Skills, Patient Anger Management skills, Patient Placement options, Patient Community resources - Discharge Discharge Criteria: No longer exhibiting s/s of withdrawal, Reduction of target symptoms Discharge to:: Substance Abuse Rehab - Treatment Team Participation Patient/Family/SO Statement: 09/25/18 11:19 "I SHOULDA LISTENED THE LAST TIME I WAS HERE...I NEED TO GO STRAIGHT TO THE [facility] FROM HERE." Discussed with Family/SO: No Was Patient/Family/SO present at Treatment Team Meeting: Yes
[2018-09-24] MEDS ORDERED: Aluminum Hydroxide/Magnesium Hydroxide Susp (30 mL) PO PRN (19:48)
[2018-09-25] MEDS: Multiple Vitamins Tab PO SCH (09:27)
--- NOTE | 2018-09-25 10:03 | PCM.PSYCH ---
Initial Psychiatric Evaluation - Initial Psychiatric Evaluation Type of Admission: Voluntary Legal Status: Capacity Chief Complaint (in patient's own words): "Not good" History of Present Illness and Precipitating Events: 43 y/o homeless single male. Pt has a 17 y/o son who lives with his mother. 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 He is here to detox from heroin. He is known from previous admissions. He sniffs up to 10 bags of heroin per day. Pt first started using heroin 20 years ago. He also drinks 1-2 "Airplane shots of vodka" per day as well as 3 x 24 oz cans of beer per day. States that he shakes, sweats, and gets dry mouth when he doesn't drink. Denies history of seizures or delirium tremens in the past. He has been admitted to detox 6 times at [facility] and 8 times at [facility]. He has never been to rehab. He was most recently discharged from [facility] a month ago. Pt planned to go to [place], but states that he did not go because he was trying to help his girlfriend. He relapsed 6 days after leaving detox. His longest time sober was 6 months ( while in [facility]). Pt report recent stressors, stating that he lost his mother in June. He was living in her home, when it was sold, leaving the patient homeless. States that his girlfriend also recently [facility] to [facility] for drug related issues. He has been "feeling more down" than usual. Says that he doesn't have any support. Reports chills, diarrhea and decreases appetite COWS > 12. He plans to go to [place] after this. Denies using any other drugs currently. On previous admissions pts admits to using 3-4 tablets of Xanax daily, smokes 1 pack per day, cocaine since the age of 12 , and uses marijuana. He is negative for these as he stopped recently. Psych Hx: Depression and anger management. Still very depressed and has vague (mostly passive) SI, no plans. However he is not feeling safe outside due to homelessness and rampant drug environment. Fam Psych Hx: Denies Medical Hx: Hep C - not treated and he has been ignoring care Trauma: Denies Current Medications: Active Medications Generic Name Dose Route Start Last Admin Trade Name Freq PRN Reason Stop Dose Admin Al Hydrox/Mg Hydrox/Simethicone 30 ml 09/24/18 19:48 Maalox 30 Ml PO TID PRN Indigestion / Heartburn Chlordiazepoxide 25 mg 09/24/18 19:49 Librium PO Q4H PRN Alcohol Withdrawal Clonidine HCl 0.1 mg 09/24/18 19:47 Catapres PO Q4 PRN COWS Score More or Equal to 5 Dicyclomine HCl 10 mg 09/24/18 19:48 Bentyl PO Q6 PRN Muscle spasm Folic Acid 1 mg 09/25/18 10:00 09/25/18 09:27 Folic Acid PO 1 mg DAILY YUSEF Administration Gabapentin 300 mg 09/24/18 20:00 09/25/18 09:27 Neurontin PO 300 mg BID YUSEF Administration Hydroxyzine HCl 25 mg 09/24/18 19:14 09/24/18 19:35 Atarax PO 25 mg Q6 PRN Administration Anxiety Ibuprofen 600 mg 09/24/18 19:48 Motrin Tab PO Q6 PRN Pain, moderate (4-7) Loperamide HCl 2 mg 09/24/18 19:48 Imodium PO Q8 PRN Diarrhea Methadone HCl 15 mg 09/25/18 10:00 09/25/18 09:27 Methadone PO 09/28/18 09:59 15 mg Q24H YUSEF Administration Taper Multivitamins 1 tab 09/25/18 10:00 09/25/18 09:27 Hexavitamin PO 1 tab DAILY YUSEF Administration Ondansetron HCl 4 mg 09/24/18 19:48 Zofran Tab PO Q8 PRN Nausea/Vomiting Pneumococcal Polyvalent Vaccine 0.5 ml 09/26/18 10:00 Pneumovax 23 Vaccine IM 09/26/18 10:01 .ONCE ONE Thiamine HCl 100 mg 09/25/18 10:00 09/25/18 09:27 Vitamin B1 Tab PO 100 mg DAILY YUSEF Administration Trazodone HCl 50 mg 09/24/18 19:49 09/24/18 21:21 Desyrel PO 50 mg HS PRN Administration Insomnia Past Psychiatric History - Past Psychiatric History Previous Treatment History: Inpatient Pertinent Medical Hx (Current Medical&Sleep Prob, Allergies): Allergies Allergy/AdvReac Type Severity Reaction Status Date / Time No Known Allergies Allergy Verified 09/24/18 14:38 Gabapentin [Neurontin] 300 mg PO TID #90 cap 08/07/18 Mirtazapine [Remeron] 30 mg PO HS #30 tab 08/07/18 traZODone [Desyrel] 100 mg PO HS PRN #30 tab 08/07/18 Review of Systems - Psychiatric Psychiatric: Abnormal Sleep Pattern, Anhedonia, Anxiety, Change in Appetite, Depression, Difficulty Concentrating, Irritability, Mood Swings. absent: Hallucinations, Homicidal Ideation, Paranoia, Suicidal Ideation Mental Status Examination - Personal Presentation Personal Presentation: Looks stated age - Affect Affect: Constricted - Motor Activity Motor Activity: Calm - Reliability in Providing Information Reliability in Providing Information: Good - Speech Speech: Organized - Mood Mood: Depressed, Anxious - Formal Thought Process Formal Thought Process: No Impairment - Cognitive Functions Orientation: Person, Place, Situation, Time Sensorium: Alert Attention/Concentration: Attentive Estimate of Intelligence: Average Judgement: Intact, as evidence by: Insight regarding need for hospitalization Memory: Recent intact, as evidence by: Ability to recall events of the day, Remote intact, as evidenced by: Abilit to recall sig. life events - Risk Risk: Withdrawal, Diminished functioning - Strength & Assets Inventory Strength & Assets Inventory: Cooperative - Limitations Limitations: Other DSM 5 DX - DSM 5 DSM 5 Diagnosis: Opioid withdrawal Opioid use disorder, severe Sedative, hypnotic or anxiolytic use disorder, severe Cocaine use disorder, severe Personality disorder, unspecified Depressive disorder, unspecified Cannabis use disorder severe - Recommended/Plan of Treatment Treatment Recommendations and Plan of Treatment: Taper with methadone Patient has not been using Xanax as much lately and plus he was in another detox so we will not start benzo detox unless he develops withdrawal symptoms Gabapentin for augmentation As needed medications All risks, benefits and alternatives of the meds discussed, and the pt agreed and understood. Attend groups and activities Supportive therapy and psychoeducation [place] for abstinence CBT for relapse prevention Encourage MAT Refer to rehab or IOP, and self-help groups Teach healthy lifestyle methods, i.e. diet, exercise, meditation Smoking cessation with [place] Nicotine patch if needed 34 min Projected ELOS: 4 days
[2018-09-26] MEDS: Multiple Vitamins Tab PO SCH (09:31)
[2018-09-26] MEDS ORDERED: Pneumococcal 23-Valent Vaccine IM ONE (10:00)
--- NOTE | 2018-09-26 12:20 | PCM.PYCHPN ---
Psychiatric Progress Note - Psychiatric Progress Note Patient Chief Complaint: "Not good" Medication Change: Yes Medical Record Reviewed: Yes Mental Status Examination - Cognitive Function Orientation: Person, Place, Situation, Time - Mood Mood: Depressed, Anxious - Affect Affect: Constricted - Formal Thought Process Formal Thought Process: No Impairment Goal/Treatment Plan - Goal/Treatment Plan Progress Toward Problem(s) and Goals/Treatment Plan: Taper with methadone Patient has not been using Xanax as much lately and plus he was in another detox so we will not start benzo detox unless he develops withdrawal symptoms Gabapentin for augmentation As needed medications All risks, benefits and alternatives of the meds discussed, and the pt agreed and understood. Attend groups and activities Supportive therapy and psychoeducation [place] for abstinence CBT for relapse prevention Encourage MAT Refer to rehab or IOP, and self-help groups Teach healthy lifestyle methods, i.e. diet, exercise, meditation Smoking cessation with [place] Nicotine patch if needed 34 min
[2018-09-26 15:08] VITALS: RESP 18
[2018-09-27] MEDS: Multiple Vitamins Tab PO SCH (09:03)
--- NOTE | 2018-09-27 09:03 | PCM.PYCHDC ---
Mental Status Examination - Mental Status Examination Orientation: Person Discharge Summary - Discharge Note Consultations:: List each consultation separately and include: 1. Reason for request. 2. Findings. 3. Follow-up Summary of Hospital Course include:: 1. Description of specific treatment plan utilized for patients during their course of treatmen. 2. Summarize the time- course for resolution of acute symptoms and/or regressed behaviors. 3. Describe issues identified and worked on during hospitalization. 4. Describe medication utilized. 5. Describe medical problems identified and treated. 6. Reassessment of suicide risk Summary of Hospital Course: 43 y/o homeless single male. Pt has a 17 y/o son who lives with his mother. 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 He is here to detox from heroin. He is known from previous admissions. He sniffs up to 10 bags of heroin per day. Pt first started using heroin 20 years ago. He also drinks 1-2 "Airplane shots of vodka" per day as well as 3 x 24 oz cans of beer per day. States that he shakes, sweats, and gets dry mouth when he doesn't drink. Denies history of seizures or delirium tremens in the past. He has been admitted to detox 6 times at [facility] and 8 times at [facility]. He has never been to rehab. He was most recently discharged from [facility] a month ago. Pt planned to go to [facility], but states that he did not go because he was trying to help his girlfriend. He relapsed 6 days after leaving detox. His longest time sober was 6 months ( while in [facility]). Pt report recent stressors, stating that he lost his mother in June. He was living in her home, when it was sold, leaving the patient homeless. States that his girlfriend also recently [facility] for drug related issues. He has been "feeling more down" than usual. Says that he doesn't have any support. Reports chills, diarrhea and decreases appetite COWS > 12. He plans to go to [facility] after this. Denies using any other drugs currently. On previous admissions pts admits to using 3-4 tablets of Xanax daily, smokes 1 pack per day, cocaine since the age of 12 , and uses marijuana. He is negative for these as he stopped recently. Psych Hx: Depression and anger management. Still very depressed and has vague (mostly passive) SI, no plans. However he is not feeling safe outside due to homelessness and rampant drug environment. Fam Psych Hx: Denies Medical Hx: Hep C - not treated and he has been ignoring care Trauma: Denies He [facility] , - Final Diagnosis (DSM 5) Condition upon Discharge: STABLE Disposition: HOME/ ROUTINE Follow-up Treatment Plan: Taper with methadone Patient has not been using Xanax as much lately and plus he was in another detox so we will not start benzo detox unless he develops withdrawal symptoms Gabapentin for augmentation As needed medications All risks, benefits and alternatives of the meds discussed, and the pt agreed and understood. Attend groups and activities Supportive therapy and psychoeducation [place] for abstinence CBT for relapse prevention Encourage MAT Refer to rehab or IOP, and self-help groups Teach healthy lifestyle methods, i.e. diet, exercise, meditation Smoking cessation with [place] Nicotine patch if needed 34 min Prescriptions/Medication Reconciliation: Gabapentin [Neurontin] 100 mg PO BID #60 cap traZODone [Desyrel] 50 mg PO HS PRN #30 tab PRN Reason: Insomnia
[2018-09-27 09:28] VITALS: BP 124/79; PULSE 55; TEMP 97.4; O2SAT 98
== END 2018-09-27 10:58 | disposition home or self-care (01) | DRG 745 ==
LOC: C.ER 14:14 → C.7D 17:05
PROC: GZ56ZZZ Individual Psychotherapy, Supportive (ICD-10-PCS; principal; 2018-09-24)
DX: F11.23 Opioid dependence with withdrawal (principal); F13.10 Sedative, hypnotic or anxiolytic abuse, uncomplicated; Z59.0 Homelessness; F17.210 Nicotine dependence, cigarettes, uncomplicated; F60.9 Personality disorder, unspecified; F32.9 Major depressive disorder, single episode, unspecified; F14.10 Cocaine abuse, uncomplicated; F12.10 Cannabis abuse, uncomplicated; F10.10 Alcohol abuse, uncomplicated; Y90.1 Blood alcohol level of 20-39 mg/100 ml